=== PATIENT | female | born 1965 | race African-American/Black ===

== ENCOUNTER 2021-07-19 18:55 | Emergency (ER) | payer OTHER, SELFPAY ==
--- NOTE | ~2021-07-19 | XR_ITS ---
EXAMINATION: XR foot LT min 3V DATE: 07/19/2021 19:27 INDICATION: Lateral left foot pain. TECHNIQUE: 4 views of left foot were obtained. COMPARISON: None. FINDINGS: Bone alignment is normal. No fracture. There is mild osteoarthritis of first metatarsophala ngeal joint. There are enthesophytes at the posterior and plantar aspects of calcaneal tuberosity. IMPRESSION: 1. Mild osteoarthritis of first metatarsophalangeal joint. Reviewed, dictated and finalized at location A.
--- NOTE | 2021-07-19 19:12 | ED.LOWEXIN ---
HPI - Extremity Injury (Lower) General Chief Complaint: Extremity Injury, Lower Stated Complaint: left foot pain Time Seen by Provider: 07/19/21 19:12 Source: patient and RN notes reviewed Mode of arrival: ambulatory Limitations: no limitations History of Present Illness HPI Narrative: 55-year-old female presents to the [facility] with complaints of left foot pain along the fifth metatarsal. States that she tripped and fell last night. Did not hit head. No loss of consciousness. Has taken Tylenol for pain and soaked it last night. Patient states that she was wearing crocs when she tripped and fell Patient states she has a history of hypertension and diabetes. Related Data Home Medications Medication Instructions Recorded Confirmed amlodipine 5 mg PO DAILY 07/19/21 07/19/21 fluticasone propionate INTRANASAL 07/19/21 metformin 1,000 mg PO BID 07/19/21 07/19/21 Allergies Allergy/AdvReac Type Severity Reaction Status Date / Time No Known Allergies Allergy Unverified 02/11/15 17:06 Review of Systems Review of Systems: All systems reviewed & are unremarkable except as noted in HPI and below Constitutional: Constitutional: Reports no additional constitutional complaints Eyes: Eyes: Reports no additional eye complaints and Denies change in vision ENT: Reports system reviewed and no additional complaints, except as documented Cardiovascular: Cardiovascular: Reports no additional cardiovascular complaints Respiratory: Respiratory: Reports no additional respiratory complaints, Denies cough and Denies dyspnea Gastrointestinal: Gastrointestinal: Reports no additional gastrointestinal complaints, Denies abdominal pain, Denies nausea and Denies vomiting Musculoskeletal: Musculoskeletal: Reports as per HPI Comments: left lateral foot pain Integumentary/Breasts: Skin/Breast: Reports system reviewed and no additional complaints, except as docu Neurologic: Reports system reviewed and no additional complaints, except as documented Psychiatric: Psychiatric: Reports no additional psychiatric complaints Allergic/Immunologic: Allergic/Immunologic: Reports no additional allergic/immunologic complaints [facility] Past Medical History Medical History (Updated 07/20/21 @ 10:21 by Greta Willard) Diabetes Hypertension Surgical History Surgical History (Updated 07/19/21 @ 19:16 by Greta Willard) History of sleeve gastrectomy Hx of breast reduction, elective Social History Social History (Updated 07/19/21 @ 19:17 by Greta Willard) Smoking status: Never smoker Comments At the time of my signature, I reviewed and agree with the nursing past medical, surgical, social, and family history. There is no relevant family history pertinent to the patient complaint. Exam Const: General: healthy appearing, no acute distress and alert Nutritional Appearance: well nourished Orientation/consciousness: patient oriented x3 Limitations: no limitations HENMT: Head: normal to inspection Eyes: Pupils: Equal, round and reactive pupils present Neck: Neck: normal visual inspection, no lymphadenopathy and no meningeal signs Chest: Chest palpation & inspection: normal inspection of the chest Resp: Effort & Inspection: normal respiratory effort and no use of accessory muscles Auscultation: clear to auscultation bilaterally, no crackles, no rales, no rhonchi and no wheezes Cardio: Rate: regular rate Rhythm: regular rhythm GI: GI Palp: Yes Soft to palpation and No Tenderness to palpation present (GI) : General: Yes no CVA tenderness Back/Spine/Pelvis: Back: no CVA tenderness Skin: General skin exam: normal color Rashes: no rashes Neuro: General: patient oriented x3, moves all extremities, no meningeal signs and no focal motor deficits Speech: normal speech Gait exam (Neuro): Normal gait present Extrem: General: normal to inspection and capillary refill normal Left lower extremity: foot Details: normal capillary re
== END 2021-07-19 19:54 | disposition home or self-care (01) ==
PROVIDERS: Emergency Provider Nurse Practitioner
DX: S90.32XA Contusion of left foot, initial encounter (principal); W01.0XXA Fall on same level from slipping, tripping and stumbling without subsequent striking against object, initial encounter; E11.9 Type 2 diabetes mellitus without complications; I10 Essential (primary) hypertension
CPT/HCPCS: 73630; 99213; G0463

== ENCOUNTER 2022-06-27 13:40 | Emergency (ER) | payer OTHER, SELFPAY ==
--- NOTE | ~2022-06-27 | XR_ITS ---
XR knee RT 3V DATE: 06/27/2022 14:46 INDICATION: Medial right knee pain for 4 days. Unable to bear weight. No known injury. TECHNIQUE: AP, lateral and sunrise views COMPARISON: None FINDINGS: There is mild periarticular spurring at all 3 compartments consistent with tricompartment m ild osteoarthritis. No fracture or dislocation or joint effusion. No periosteal reaction or bone destruction. No radiopaq ue intra-articular loose body or chondrocalcinosis. Osteopenia. IMPRESSION: Mild tricompartment osteoarthritis Osteopenia Reviewed, dictated and finalized at location B.
[2022-06-27 14:00] VITALS: BP 146/88; PULSE 83; RESP 16; TEMP 36.3; O2SAT 100
--- NOTE | 2022-06-27 14:36 | ED.LOWEXIN ---
HPI - Extremity Injury (Lower) General Chief Complaint: Extremity Injury, Lower Stated Complaint: right knee injury Time Seen by Provider: 06/27/22 13:57 History of Present Illness HPI Narrative: 56-year-old female presents to the emergency room for evaluation of right knee pain. 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 Patient states that she was seen on Saturday at [facility] urgent care and was given an official diagnosis. Patient was given a knee splint and told to wear this at work. States that he splint is not alleviating her pain. Knee pain is worse well with ambulation, describes it as a sharp and stabbing pain. Patient also states that the knee feels like it is getting give out on her. Denies any known injury or trauma. Related Data Home Medications Medication Instructions Recorded Confirmed amlodipine 5 mg tablet 5 mg PO DAILY 07/19/21 07/19/21 fluticasone propionate 50 intranasal 07/19/21 mcg/actuation nasal spray,suspension metformin 500 mg tablet 1,000 mg PO BID 07/19/21 07/19/21 Allergies Allergy/AdvReac Type Severity Reaction Status Date / Time No Known Allergies Allergy Unverified 02/11/15 17:06 Review of Systems Review of Systems: CONSTITUTIONAL: Denies fever, chills, or sweats. EYES: Denies visual changes, redness, or discharge. ENT: Denies rhinorrhea, congestion, sore throat, or otalgia. CARDIOVASCULAR: Denies chest pain, palpitations, or edema. RESPIRATORY: Denies cough or dyspnea. GASTROINTESTINAL: Denies abdominal pain, nausea, vomiting, or diarrhea. GENITOURINARY: Denies dysuria or hematuria. SKIN: Denies rash or itching. MUSCULOSKELETAL: Reports right knee pain NEUROLOGIC: Denies headache, numbness, dizziness, or weakness. PSYCHIATRIC: Denies anxiety or depression. [facility] Past Medical History Medical History Diabetes Hypertension Surgical History Surgical History History of sleeve gastrectomy Hx of breast reduction, elective Social History Social History Smoking status: Never smoker Exam Narrative: GENERAL: Well-appearing, well-nourished, no physical limitations, and in no acute distress. HEAD: Normocephalic, atraumatic. CHEST: Clear to auscultation. No respiratory distress. No wheezes rales or rhonchi. No tenderness. HEART: Regular rate and rhythm. No murmur heard. Normal peripheral pulses. EXTREMITIES: Right knee: Medial surface, with diffuse soft tissue swelling and mild warmth. No obvious signs of injury. Negative anterior posterior drawer test. No pain with varus and valgus pressure. Unable to test for meniscus injury due to discomfort. No patellar tracking. Negative Homans' sign right lower extremity. No tenderness to the calf muscle SKIN: Warm, dry, no rash. No noted wounds NEURO: No focal deficits. Alert and oriented x3. MAEW. CN's II-XI intact bilaterally, normal gait PSYCH: Cooperative. Normal mood and affect. Course Vital Signs Vital signs: Vital Signs Temperature 36.3 C L 06/27/22 14:00 Pulse Rate 83 06/27/22 14:00 Respiratory Rate 16 06/27/22 14:00 Blood Pressure 146/88 H 06/27/22 14:00 Pulse Oximetry 100 06/27/22 14:00 Oxygen Delivery Room Air 06/27/22 14:00 Temperature 36.3 C L 06/27/22 14:00 Pulse Rate 77 06/27/22 16:55 Respiratory Rate 19 06/27/22 16:55 Blood Pressure 139/88 06/27/22 16:55 Pulse Oximetry 99 06/27/22 16:55 Oxygen Delivery Room Air 06/27/22 14:00 MDM - Extremity Injury (Lower) Lab Data Labs: Lab Results 06/27/22 Range/Units 15:29 D-Dimer 0.43 (<0.48) ug/mL Discharge Plan Discharge Clinical Impression: Arthralgia of knee, right Patient Disposition: Home, Self-Care Condition: Stable Instructions: Antibiotic Form Additional Instructions: Begin taking the
[2022-06-27 15:57] LABS: D Dimer 0.43 ug/mL (<0.48)
[2022-06-27 16:55] VITALS: BP 139/88; PULSE 77; RESP 19; O2SAT 99
== END 2022-06-27 16:55 | disposition home or self-care (01) ==
PROVIDERS: Emergency Provider Nurse Practitioner Family
DX: M25.561 Pain in right knee (principal); E11.9 Type 2 diabetes mellitus without complications; I10 Essential (primary) hypertension; Z79.84 Long term (current) use of oral hypoglycemic drugs; Z98.84 Bariatric surgery status
CPT/HCPCS: 36415; 73562; 85380; 96372; 99283; J1100